=== PATIENT | male | born 1990 | race Caucasian/White ===

== ENCOUNTER 2019-04-21 11:29 | Emergency (ER) | payer OTHER ==
[~2019-04-21] VITALS: Ht 182.9 cm; Wt 99.8 kg
[2019-04-21] MEDS ORDERED: AMOXICILLIN 50500 MG PO (13:05)
[2019-04-21] MEDS ORDERED: LIDOCAINE VISC100 ML SWISH&SPIT (13:05)
[2019-04-21] MEDS ORDERED: TYLENOL WITH CO1 TA1 PO (13:05)
[2019-04-21 13:18] VITALS: BP 141/40
== END 2019-04-21 13:19 | disposition home or self-care (01) ==
LOC: M.ERS 11:29
DX: K04.7 Periapical abscess without sinus (principal); K03.81 Cracked tooth